=== PATIENT | male | born 2000 | race Two or more races ===

== ENCOUNTER 2022-07-10 01:23 | Emergency (ER) | payer SELFPAY ==
[~2022-07-10] VITALS: Ht 185.4 cm; Wt 97.7 kg
[2022-07-10 01:24] VITALS: BP 114/64
== END 2022-07-10 02:53 | disposition left against medical advice (07) ==
LOC: EMS 01:25
DX: T50.905A Adverse effect of unspecified drugs, medicaments and biological substances, initial encounter (principal); Z53.21 Procedure and treatment not carried out due to patient leaving prior to being seen by health care provider